=== PATIENT | male | born 1985 | race Caucasian/White ===

== ENCOUNTER 2016-05-02 19:42 | Emergency (ER) | payer MEDICAID ==
[2016-05-02] MEDS ORDERED: SODIUM CHLORIDE 0.9% 1,000 ML ONE (20:51)
== END 2016-05-02 21:20 | disposition home or self-care (01) ==
LOC: EEVIPCON 19:42 → ER 19:42
DX: Z02.89 Encounter for other administrative examinations (principal); H10.212 Acute toxic conjunctivitis, left eye; S80.02XA Contusion of left knee, initial encounter; Y35.893A Legal intervention involving other specified means, suspect injured, initial encounter; F17.210 Nicotine dependence, cigarettes, uncomplicated